=== PATIENT | male | born 1990 | race Caucasian/White ===

== ENCOUNTER 2021-03-07 12:21 | Inpatient (IN) | payer OTHER ==
[2021-03-07] MEDS ORDERED: BISMUTH SUBSALICYLATE 262 MG/15 ML BTL PO PRN (13:36)
[2021-03-07] MEDS ORDERED: MAG HYDROX/AL HYDROX/SIMETH 30 ML UNIT-DOSE CUP PO PRN (13:36)
[2021-03-07] MEDS ORDERED: METHOCARBAMOL 500 MG TABLET PO PRN (13:36)
[2021-03-07] MEDS ORDERED: MENTHOL/PHENOL 1 EACH UD MM PRN (13:36)
[2021-03-07] MEDS ORDERED: ACETAMINOPHEN 325 MG TABLET (FP) PO PRN ×2 (13:36)
[2021-03-07] MEDS ORDERED: IBUPROFEN 400 MG TABLET (FP) PO PRN (13:36)
[2021-03-07] MEDS ORDERED: MAGNESIUM CITRATE 300 ML BOTTLE PO PRN (13:36)
[2021-03-07] MEDS ORDERED: ONDANSETRON *ODT* 4 MG TABLET SL PRN (13:36)
[2021-03-07] MEDS ORDERED: diazePAM 5 MG TABLET PO PRN (13:36)
[2021-03-07] MEDS ORDERED: NICOTINE POLACRILEX 2 MG GUM BUC PRN (13:36)
[2021-03-07] MEDS ORDERED: MAGNESIUM HYDROX 2400MG/30ML ORAL SUSPENSION 30 ML CUP PO PRN (13:36)
[2021-03-07 13:48] VITALS: BMI 27.2
[2021-03-07 17:31] LABS: HEMATOCRIT 39.8 % (35.4-49); HEMOGLOBIN 13.6 GM/dL (11.7-16.9); MCH 31.5 pg (25.7-33.7); MCHC 34.2 g/dl (32.0-35.9); MEAN PLT VOLUME 7.7 fl (7.5-11.1); PLATELET COUNT 193 K/MM3 (134-434); RBC 4.32 M/mm3 (4.00-5.60); RDW 14.7 % (11.9-15.9); WHITE BLOOD COUNT 6.9 K/mm3 (4.0-10.0)
[2021-03-07 17:45] LABS: CALCIUM 8.9 mg/dL (8.5-10.1)
[2021-03-07 17:46] LABS: ALBUMIN 3.9 g/dl (3.4-5.0); BLOOD UREA NITROGEN 17.9 mg/dL (7-18)
[2021-03-07 17:49] LABS: CREATININE 0.8 mg/dL (0.55-1.3)
[2021-03-07 17:51] LABS: TOT PROT 7.2 g/dl (6.4-8.2)
[2021-03-07 17:52] LABS: BILIRUBIN,TOTAL 0.4 mg/dL (0.2-1)
[2021-03-07] MEDS: NICOTINE 7 MG/24 HOURS TOPICAL PATCH TD SCH (18:08)
[2021-03-07] MEDS: hydrOXYzine PAMOATE 25 MG CAPSULE (FP) PO SCH ×3 (18:08→23:47)
[2021-03-07] MEDS: PRENATAL VITAMINS W/ FOLIC ACID TABLET (FP) PO SCH (18:08)
[2021-03-07] MEDS: diazePAM 5 MG TABLET PO SCH ×2 (18:11→23:48)
[2021-03-07 18:28] LABS: HIV INTERPRETATION NEGATIVE (NEGATIVE)
[2021-03-07] MEDS: traZODone HCL 50 MG TABLET (FP) PO SCH (22:42)
[2021-03-07] MEDS: MELATONIN 5 MG TABLETS PO SCH (23:46)
[2021-03-07] MEDS: THIAMINE HCL 100 MG TABLET (FP) PO SCH (23:47)
[2021-03-07] MEDS: GABAPENTIN 400 MG CAPSULE PO SCH (23:47)
[2021-03-08] MEDS: diazePAM 5 MG TABLET PO SCH ×4 (05:56→22:17)
[2021-03-08] MEDS: hydrOXYzine PAMOATE 25 MG CAPSULE (FP) PO SCH ×5 (05:57→22:17)
[2021-03-08] MEDS: PRENATAL VITAMINS W/ FOLIC ACID TABLET (FP) PO SCH (10:07)
[2021-03-08] MEDS: VENLAFAXINE HCL 75 MG E.R. CAPSULES PO SCH (10:07)
[2021-03-08] MEDS: GABAPENTIN 400 MG CAPSULE PO SCH ×2 (10:08→22:17)
[2021-03-08] MEDS: NICOTINE 7 MG/24 HOURS TOPICAL PATCH TD SCH (10:10)
[2021-03-08] MEDS: traZODone HCL 50 MG TABLET (FP) PO SCH (22:17)
[2021-03-08] MEDS: MELATONIN 5 MG TABLETS PO SCH (22:17)
[2021-03-08] MEDS: THIAMINE HCL 100 MG TABLET (FP) PO SCH (22:17)
[2021-03-09] MEDS: diazePAM 5 MG TABLET PO SCH ×3 (05:17→22:20)
[2021-03-09] MEDS: hydrOXYzine PAMOATE 25 MG CAPSULE (FP) PO SCH ×5 (05:17→22:20)
[2021-03-09] MEDS: PRENATAL VITAMINS W/ FOLIC ACID TABLET (FP) PO SCH (10:51)
[2021-03-09] MEDS: VENLAFAXINE HCL 75 MG E.R. CAPSULES PO SCH (10:51)
[2021-03-09] MEDS: GABAPENTIN 400 MG CAPSULE PO SCH ×2 (10:52→22:20)
[2021-03-09] MEDS: NICOTINE 7 MG/24 HOURS TOPICAL PATCH TD SCH (10:52)
[2021-03-09] MEDS: THIAMINE HCL 100 MG TABLET (FP) PO SCH (22:20)
[2021-03-09] MEDS: MELATONIN 5 MG TABLETS PO SCH (22:20)
[2021-03-09] MEDS: traZODone HCL 50 MG TABLET (FP) PO SCH (22:20)
[2021-03-10] MEDS: diazePAM 5 MG TABLET PO SCH ×2 (05:09→18:22)
[2021-03-10] MEDS: hydrOXYzine PAMOATE 25 MG CAPSULE (FP) PO SCH ×5 (05:10→22:33)
[2021-03-10] MEDS: VENLAFAXINE HCL 75 MG E.R. CAPSULES PO SCH (10:32)
[2021-03-10] MEDS: PRENATAL VITAMINS W/ FOLIC ACID TABLET (FP) PO SCH (10:32)
[2021-03-10] MEDS: NICOTINE 7 MG/24 HOURS TOPICAL PATCH TD SCH (10:33)
[2021-03-10] MEDS: GABAPENTIN 300 MG CAPSULE PO SCH ×2 (12:13→22:33)
[2021-03-10] MEDS: MELATONIN 5 MG TABLETS PO SCH (22:33)
[2021-03-10] MEDS: traZODone HCL 50 MG TABLET (FP) PO SCH (22:33)
[2021-03-10] MEDS: THIAMINE HCL 100 MG TABLET (FP) PO SCH (22:33)
[2021-03-11] MEDS: hydrOXYzine PAMOATE 25 MG CAPSULE (FP) PO SCH (05:10)
[2021-03-11] MEDS ORDERED: diazePAM 5 MG TABLET PO ONE (06:00)
[2021-03-11 09:46] VITALS: BP 140/97; PULSE 96; TEMP 97.1
== END 2021-03-11 09:50 | disposition home or self-care (01) | DRG 775 ==
LOC: YASAS 12:21 → Y3N 13:51 → UNDODISIN 21:10 → Y3N 22:24
PROVIDERS: ADMIT Allergy & Immunology; ATTEND Allergy & Immunology
PROC: HZ2ZZZZ Detoxification Services for Substance Abuse Treatment (ICD-10-PCS; principal; 2021-03-07)
DX: F10.230 Alcohol dependence with withdrawal, uncomplicated (principal); F13.20 Sedative, hypnotic or anxiolytic dependence, uncomplicated; F12.20 Cannabis dependence, uncomplicated; F17.210 Nicotine dependence, cigarettes, uncomplicated; F19.24 Other psychoactive substance dependence with psychoactive substance-induced mood disorder; F41.9 Anxiety disorder, unspecified; F32.9 Major depressive disorder, single episode, unspecified; G47.00 Insomnia, unspecified
CPT/HCPCS: 36415; 80053; 85027; 86780; 87389; 93005; 93010; C9803; Q0162; U0003; U0005